=== PATIENT | male | born 1995 | race Caucasian/White ===

== ENCOUNTER 2020-12-03 06:34 | Outpatient (CLI) | payer OTHER, SELFPAY ==
--- NOTE | 2020-12-03 12:55 | WPDNEUROLOGY ---
Neurology EEG Report General Information Date of Study: 12/03/20 TEST eeg DIAGNOSIS seizures CONDITION OF RECORDING Awake drowsy and sleep EEG NUMBER [id number] CLINICAL HISTORY no particular history was available patient is reportedly Deaf and had cochlear implant was removed for the test. EEG DESCRIPTION basic resting occipital frequency consists of large amount Well-organized low to medium voltage 8 to 10 hertz per 2nd alpha had mixed with very minimal amount of low-voltage 15 to 18 hertz per 2nd beta. During drowsiness low-voltage beta activity seen diffusely admixed with waxing and waning alpha activity. Hyperventilation not done. Photic stimulation produced normal drive. Non paroxysmal. Nonfocal. Nonlateralizing. IMPRESSION Normal record
== END 2020-12-03 06:35 | disposition home or self-care (01) ==
PROVIDERS: PCP Internal Medicine; Visit Provider Psychiatry & Neurology Neurology
DX: G40.909 Epilepsy, unspecified, not intractable, without status epilepticus (principal)
CPT/HCPCS: 95816

== ENCOUNTER 2024-05-19 15:41 | Outpatient (CLI) | payer OTHER, SELFPAY ==
--- NOTE | ~2024-05-19 | CT_ITS ---
EXAMINATION: CT brain wo con DATE: 05/19/2024 16:00 INDICATION: history of focal onset epilepsy . TECHNIQUE: Computed tomography (CT) of the head was performed without intravenous contrast. The mA wa s adjusted according to patient size. Iterative reconstruction technique was employed. The dose-lengt h product was 645.69 mGy-cm. COMPARISON: None. FINDINGS: Metal artifact from the cochlear implant obscures detail in the parenchyma of the right hemisphere. No acute intracranial hemorrhage or extra-axial fluid collection. No hydrocephalus, mass, or herniation. No acute ischemic infarct. Unremarkable dural venous sinus attenuation. No acute osseous abnormality. The aerated spaces are clear. IMPRESSION: No acute intracranial process. Reviewed, dictated and finalized at location K. [employer] [employer] [employer]PER[facility]
== END 2024-05-19 15:42 | disposition home or self-care (01) ==
PROVIDERS: PCP Student in an Organized Health Care Education/Training Program; Visit Provider Student in an Organized Health Care Education/Training Program
DX: G40.109 Localization-related (focal) (partial) symptomatic epilepsy and epileptic syndromes with simple partial seizures, not intractable, without status epilepticus (principal)
CPT/HCPCS: 70450